=== PATIENT | female | born 1950 | race Caucasian/White ===

== ENCOUNTER → 2016-12-24 | Outpatient (CLI) | payer MEDICARE, OTHER ==
[2016-12-24 11:16] LABS: HEMATOCRIT 35.1 % (36.0-47.0); HGB HCT DIFFERENCE 0.9; MEAN CORPUSCULAR HGB CONC 34.1 g/dL (32.0-36.0); MEAN CORPUSCULAR VOLUME 85 fl (80-97); RED BLOOD COUNT 4.13 10^6/uL (3.72-5.28); WHITE BLOOD COUNT 5.7 10^3/uL (4.0-10.5)
[2016-12-24 11:23] LABS: APPEARANCE,URINE CLEAR; BILIRUBIN,URINE NEGATIVE (NEGATIVE); GLUCOSE, URINE NEGATIVE (NEGATIVE); KETONES,URINE NEGATIVE (NEGATIVE); LEUKOCYTE ESTERASE,URINE NEGATIVE (NEGATIVE); NITRITE,URINE NEGATIVE (NEGATIVE); PROTEIN,URINE 30 mg/dL (NEGATIVE); URINE SPECIFIC GRAVITY 1.006; UROBILINOGEN,URINE NEGATIVE mg/dL (<2.0)
[2016-12-24 11:30] LABS: ANION GAP 10 (5-19); BLOOD UREA NITROGEN 22 mg/dL (7-20); CALCIUM 9.5 mg/dL (8.4-10.2); CARBON DIOXIDE 26 mmol/L (22-30); CHLORIDE 104 mmol/L (98-107); CREATININE RESULT 0.77 mg/dL (0.52-1.25); GLUCOSE 126 mg/dL (75-110); POTASSIUM 4.7 mmol/L (3.6-5.0)
[2016-12-24 12:05] LABS: FERRITIN 7.86 ng/mL (11.1-264.0)
[2016-12-25 10:38] LABS: CREATININE URINE 28.7 mg/dL (Not Estab.)
== END ==
LOC: OD 10:40
PROVIDERS: ATTEND Internal Medicine Nephrology
DX: R80.9 Proteinuria, unspecified (principal); E11.9 Type 2 diabetes mellitus without complications; D64.9 Anemia, unspecified
CPT/HCPCS: 36415; 80048; 81001; 82570; 82728; 83540; 83550; 84156; 85027

== ENCOUNTER 2017-01-29 00:05 | Observation (INO) | payer MEDICARE, OTHER ==
[2017-01-29] MEDS ORDERED: ASPIRIN 81 MG TABLET, CHEWABLE PO ONE (00:09)
[2017-01-29 01:02] LABS: ABSOLUTE EOSINOPHILS # (AUTO) 0.2 10^3/uL (0.0-0.6); ABSOLUTE LYMPHOCYTES (AUTO) 2.1 10^3/uL (0.5-4.7); ABSOLUTE MONOCYTES (AUTO) 0.5 10^3/uL (0.1-1.4); ABSOLUTE NEUT (AUTO) 3.5 10^3/uL (1.7-8.2); BASOPHILS % (AUTO) 0.8 % (0-2); EOSINOPHILS % (AUTO) 3.1 % (0-6); HEMATOCRIT 33.2 % (36.0-47.0); HEMOGLOBIN 11.2 g/dL (12.0-15.5); HGB HCT DIFFERENCE 0.4; LYMPHOCYTES % (AUTO) 33.4 % (13-45); MEAN CORPUSCULAR HEMOGLOBIN 28.2 pg (27.0-33.4); MEAN CORPUSCULAR HGB CONC 33.6 g/dL (32.0-36.0); MEAN CORPUSCULAR VOLUME 84 fl (80-97); MONOCYTES % (AUTO) 7.9 % (3-13); RED BLOOD COUNT 3.95 10^6/uL (3.72-5.28); RED CELL DISTRIBUTION WIDTH 13.5 % (11.5-14.0); SEGMENTED NEUTROPHILS % (AUTO) 54.8 % (42-78); WHITE BLOOD COUNT 6.3 10^3/uL (4.0-10.5)
[2017-01-29 01:12] LABS: ALANINE AMINOTRANSFERASE 31 U/L (9-52); ALBUMIN 3.9 g/dL (3.5-5.0); ALKALINE PHOSPHATASE 51 U/L (38-126); ANION GAP 14 (5-19); ASPARTATE AMINO TRANSFERASE 19 U/L (14-36); BILIRUBIN,DIRECT 0.2 mg/dL (0.0-0.4); BILIRUBIN,TOTAL 0.2 mg/dL (0.2-1.3); BLOOD UREA NITROGEN 21 mg/dL (7-20); CALCIUM 9.3 mg/dL (8.4-10.2); CARBON DIOXIDE 22 mmol/L (22-30); CHLORIDE 105 mmol/L (98-107); CREATINE KINASE 61 U/L (30-135); CREATININE RESULT 0.91 mg/dL (0.52-1.25); GLUCOSE 126 mg/dL (75-110); POTASSIUM 4.2 mmol/L (3.6-5.0); SODIUM 141.1 mmol/L (137-145); TOTAL PROTEIN 6.4 g/dL (6.3-8.2)
[2017-01-29 01:24] LABS: CREATINE KINASE MB 0.77 ng/mL (<4.55)
[2017-01-29 01:25] LABS: TROPONIN I < 0.012 ng/mL
--- NOTE | 2017-01-29 01:46 | ER Document Report ---
ED Cardiac - General Chief Complaint: Chest Pain Stated Complaint: CHEST PAIN Time Seen by Provider: 01/29/17 01:23 Mode of Arrival: Ambulatory Information source: Patient Notes: Patient is a 66-year-old female with a history of hypertension, high cholesterol, diabetes and smoking who presents to the ER today for chest pain has been intermittent 1 week but worsened tonight at approximately 8 PM in the left side of her chest radiating to the left shoulder blade and down the left arm. Patient admits to shortness of breath with the pain. She denies any nausea or vomiting. She describes the chest pain as a tightness and sharp, shooting pains in the back. She has never had a heart attack or stroke. She did not try anything for the pain. TRAVEL OUTSIDE OF THE [place] IN LAST 30 DAYS: No - Related Data Allergies/Adverse Reactions: Sulfa (Sulfonamide Antibiotics) Allergy (Intermediate, Verified 01/29/17 00:21) Home Medications: Current Home Medications Ferrous Sulfate [Feosol 325 mg Tablet] 325 mg PO DAILY 01/29/17 [History] Losartan Potassium [Cozaar 50 mg Tablet] 50 mg PO DAILY 01/29/17 [History] Metformin HCl [Metformin HCl ER] 500 mg PO BIDBS 01/29/17 [History] Metoprolol Succinate [Toprol Xl 50 mg Tab.sr] 50 mg PO Q12 01/29/17 [History] Omeprazole 40 mg PO DAILY 01/29/17 [History] Pioglitazone HCl [Actos] 30 mg PO DAILY 01/29/17 [History] Simvastatin [Zocor 20 mg Tablet] 20 mg PO QHS 01/29/17 [History] Past Medical History - General Information source: Patient - Social History Smoking Status: Current Every Day Smoker Chew tobacco use (# tins/day): No Frequency of alcohol use: None Drug Abuse: None Family History: CAD, DM, Hyperlipidemia, Hypertension Patient has suicidal ideation: No Patient has homicidal ideation: No - Past Medical History Cardiac Medical History: Reports: Hx Hypercholesterolemia, Hx Hypertension - MEDICATED Denies: Hx Heart Attack Pulmonary Medical History: Denies: Hx Asthma, Hx Bronchitis, Hx COPD, Hx Pneumonia Neurological Medical History: Denies: Hx Cerebrovascular Accident, Hx Seizures Endocrine Medical History: Reports: Hx Diabetes Mellitus Type 2 Renal/ Medical History: Reports: Hx Kidney Stones. Denies: Hx Peritoneal Dialysis GI Medical History: Reports: Hx Hiatal Hernia. Denies: Hx Hepatitis, Hx Ulcer Musculoskeltal Medical History: Denies Hx Arthritis Infectious Medical History: Denies: Hx Hepatitis Past Surgical History: Reports: Hx Cholecystectomy. Denies: Hx Hysterectomy, Hx Mastectomy, Hx Open Heart Surgery, Hx Pacemaker - Immunizations Hx Diphtheria, Pertussis, Tetanus Vaccination: Yes Review of Systems - Review of Systems Constitutional: No symptoms reported EENT: No symptoms reported Cardiovascular: See HPI Respiratory: See HPI Gastrointestinal: No symptoms reported Genitourinary: No symptoms reported Female Genitourinary: No symptoms reported Musculoskeletal: No symptoms reported Skin: No symptoms reported Hematologic/Lymphatic: No symptoms reported Neurological/Psychological: No symptoms reported Physical Exam - Vital signs Vitals: Temp Pulse Resp BP Pulse Ox 97.8 F 59 L 20 163/62 H 98 01/29/17 00:21 01/29/17 00:21 01/29/17 00:21 01/29/17 00:21 01/29/17 00:21 - Notes Notes: PHYSICAL EXAMINATION: GENERAL: Well-appearing and in no acute distress. HEAD: Atraumatic, normocephalic. EYES: Pupils equal round and reactive to light, extraocular movements intact, sclera anicteric, conjunctiva are normal. NECK: Normal range of motion, supple without lymphadenopathy LUNGS: CTAB and equal. No wheezes rales or rhonchi. HEART: Chest nontender to palpation, Regular rate and rhythm without murmurs ABDOMEN: Soft, no tenderness. No guarding, no rebound BACK: no vertebral tenderness, normal ROM GI/: no CVA tenderness EXTREMITIES: Normal range of motion, no pitting edema. No cyanosis. NEUROLOGICAL: Cranial nerves grossly intact. Normal sensory/motor exams. PSYCH: Normal mood, normal affect. SKIN: Warm, Dry, normal turgor, no rashes or lesions noted Course - Re-evaluation Re-evalutation: 01/29/17 03:43 Labwork is unremarkable today including a normal set of cardiac enzymes. EKG reveals a normal sinus rhythm at a rate of 63 bpm with no evidence of ischemia or abnormality. Chest x-ray is without acute pathology. Patient's chest pain did relieve with nitroglycerin paste. Last stress test was 5 years ago. 01/29/17 03:54 Dr. Karlos suarez second troponin. 01/29/17 05:04 Second troponin is also negative. Dr. Everett agrees to admit patient for chest pain rule out at this time possible stress test. Patient is chest pain- free at this time. - Vital Signs Vital signs: Temp Pulse Resp BP Pulse Ox 97.7 F 64 18 140/60 H 99 01/29/17 15:57 01/29/17 15:57 01/29/17 15:57 01/29/17 11:36 01/29/17 15:57 - Laboratory Result Diagrams: 01/29/17 00:51 01/29/17 00:51 Laboratory results interpreted by me: 01/29/17 01/29/17 01/29/17 00:51 00:51 00:51 Hgb 11.2 L Hct 33.2 L BUN 21 H Glucose 126 H Hemoglobin A1c % 6.7 H Triglycerides VLDL Cholesterol TSH 01/29/17 01/29/17 03:56 03:56 Hgb Hct BUN Glucose Hemoglobin A1c % Triglycerides 180 H VLDL Cholesterol 36.0 H TSH 7.55 H Discharge - Discharge Clinical Impression: Chest pain Admitting Provider: Hospitalist Unit Admitted: Telemetry
[2017-01-29] MEDS ORDERED: NITROGLYCERIN 2% OINTMENT 1 GM PACKET TP ONE (01:57)
[2017-01-29] MEDS ORDERED: MAG HYDROX/AL HYDROX/SIMETH SUSP 30 ML UDCUP PO ONE (02:40)
[2017-01-29] MEDS ORDERED: LIDOCAINE 2% VISCOUS SOLN 20 ML UDCUP PO ONE (02:40)
[2017-01-29] MEDS ORDERED: METOCLOPRAMIDE HCL ORAL SOLN 10 MG/10 ML UDCUP PO ONE (02:40)
[2017-01-29] MEDS ORDERED: INSULIN LISPRO 100 UNIT/ML 3 ML VIAL SUBCUT PRN (04:39)
[2017-01-29] MEDS ORDERED: NITROGLYCERIN 0.4 MG/TAB 25 TAB/BOTTLE SL PRN (04:39)
[2017-01-29] MEDS ORDERED: GLUCAGON,HUMAN RECOMB 1 MG INJ IM PRN (04:39)
[2017-01-29] MEDS ORDERED: DEXTROSE 40% GEL 15 GM TUBE PO PRN ×2 (04:39)
[2017-01-29] MEDS ORDERED: DEXTROSE 50%-WATER 25 GM/50 ML DISP.SYRIN IV PRN ×2 (04:39)
[2017-01-29] MEDS ORDERED: HYDRALAZINE HCL INJ/PF 20 MG/1 ML SDV IV PRN (04:42)
[2017-01-29] MEDS ORDERED: ATORVASTATIN CALCIUM 80 MG TABLET PO SCH ×3 (04:45→22:00)
[2017-01-29] MEDS ORDERED: ENALAPRILAT DIHYDRATE INJ/PF 1.25 MG/1 ML SDV IV PRN (05:18)
[2017-01-29] MEDS ORDERED: ENALAPRILAT DIHYDRATE INJ/PF 1.25 MG/1 ML SDV IV ONE (05:18)
[2017-01-29 05:23] LABS: CHOLESTEROL 130.11 mg/dL (0-200); Direct HDL 41 mg/dL (>40); TRIGLYCERIDES 180 mg/dL (<150)
--- NOTE | 2017-01-29 05:25 | PDOC H&P ---
History of Present Illness Admission Date/PCP: ROCHELLE LYON PA-C Patient complains of: Chest pain and shortness of breath History of Present Illness: CHRISTEN GRIFFIN is a 66 year old female with a past medical history of hypertension, tobacco, dyslipidemia and diabetes. She been her usual state of health until approximately 1 week ago having intermittent episodes of left- sided chest pain which is sharp in nature 3-5 intensity that radiates down the left arm and back associated with shortness of breath without palpitations or nausea. Symptoms have become more intense prompting him to seek evaluation emergency room where she's found to have uncontrolled hypertension the 180s systolic and near total resolution with topical nitroglycerin. She is currently pain-free and referred to the hospitalist for admission. She denies previous episode alleviating or exacerbating factors. Her last cardiac stress test was several years ago. Past Medical History Cardiac Medical History: Reports: Hyperlipidema, Hypertension - MEDICATED Denies: Myocardial Infarction Pulmonary Medical History: Denies: Asthma, Bronchitis, Chronic Obstructive Pulmonary Disease (COPD), Pneumonia Neurological Medical History: Denies: Seizures Endocrine Medical History: Reports: Diabetes Mellitus Type 2 GI Medical History: Reports: Hiatal Hernia Denies: Hepatitis Musculoskeltal Medical History: Denies: Arthritis Psychiatric Medical History: Reports: Tobacco Dependency Hematology: Denies: Anemia, Sickle Cell Disease Past Surgical History Past Surgical History: Reports: Cholecystectomy Denies: Amputation, Hysterectomy, Mastectomy, Pacemaker Social History Information Source: Patient, [facility] Records Lives with: Alone Smoking Status: Current Every Day Smoker Cigarettes Packs Per Day: 0.5 Frequency of Alcohol Use: None Drugs: None Family History Family History: CAD, Hypertension Parental Family History Reviewed: Yes Children Family History Reviewed: Yes Sibling(s) Family History Reviewed.: Yes Medication/Allergy Home Medications: Felodipine [Plendil] 1 tab PO DAILY 09/28/13 Fenofibric Acid (Choline) [Fenofibric Acid] 135 mg PO DAILY 09/28/13 Glimepiride 1 mg PO DAILY 09/28/13 Metformin HCl [Glucophage 850 mg Tablet] 850 mg PO BIDACBS 09/28/13 Metoprolol Succinate [Toprol Xl 50 mg Tab.sr] 50 mg PO DAILY 09/28/13 Omeprazole 20 mg PO DAILY 09/28/13 Simvastatin 20 mg PO DAILY 09/28/13 Cephalexin Monohydrate [Keflex 500 mg Capsule] 1 tab PO BID 02/20/14 Ciprofloxacin HCl [Cipro 500 mg Tablet] 1 tab PO BID 02/20/14 Ibuprofen [Motrin 400 mg Tablet] 1 tab PO TID 02/20/14 Oxycodone HCl 1 tab PO Q4HP PRN 02/20/14 Phenazopyridine HCl [Pyridium 200 mg Tablet] 1 tab PO TID 02/20/14 Allergies/Adverse Reactions: Sulfa (Sulfonamide Antibiotics) Allergy (Intermediate, Verified 01/29/17 00:21) Review of Systems Constitutional: ABSENT: chills, fever(s), headache(s), weight gain, weight loss Eyes: ABSENT: visual disturbances Ears: ABSENT: hearing changes Cardiovascular: ABSENT: chest pain, dyspnea on exertion, edema, orthropnea, palpitations Respiratory: ABSENT: cough, hemoptysis Gastrointestinal: ABSENT: abdominal pain, constipation, diarrhea, hematemesis, hematochezia, nausea, vomiting Genitourinary: ABSENT: dysuria, hematuria Musculoskeletal: ABSENT: joint swelling Integumentary: ABSENT: rash, wounds Neurological: ABSENT: abnormal gait, abnormal speech, confusion, dizziness, focal weakness, syncope Psychiatric: ABSENT: anxiety, depression, homidical ideation, suicidal ideation Endocrine: ABSENT: cold intolerance, heat intolerance, polydipsia, polyuria Hematologic/Lymphatic: ABSENT: easy bleeding, easy bruising Physical Exam Vital Signs: Temp Pulse Resp BP Pulse Ox 97.8 F 59 L 15 144/76 H 97 01/29/17 00:21 01/29/17 00:21 01/29/17 02:46 01/29/17 02:46 01/29/17 02:46 Intake & Output 01/27/17 01/28/17 01/29/17 11:59 11:59 11:59 Weight 97.8 kg General appearance: PRESENT: no acute distress, well-developed, well-nourished Head exam: PRESENT: atraumatic, normocephalic Eye exam: PRESENT: conjunctiva pink, EOMI, PERRLA. ABSENT: scleral icterus Ear exam: PRESENT: normal external ear exam Mouth exam: PRESENT: moist, tongue midline Neck exam: ABSENT: carotid bruit, JVD, lymphadenopathy, thyromegaly Respiratory exam: PRESENT: clear to auscultation davion. ABSENT: rales, rhonchi, wheezes Cardiovascular exam: PRESENT: RRR, +S1, +S2, systolic murmur. ABSENT: bradycardia, clicks, gallop Pulses: PRESENT: normal dorsalis pedis pul Vascular exam: PRESENT: normal capillary refill GI/Abdominal exam: PRESENT: normal bowel sounds, soft. ABSENT: distended, guarding, mass, organolmegaly, rebound, tenderness Rectal exam: PRESENT: deferred Extremities exam: PRESENT: full ROM. ABSENT: calf tenderness, clubbing, pedal edema Neurological exam: PRESENT: alert, awake, oriented to person, oriented to place , oriented to time, oriented to situation, CN II-XII grossly intact. ABSENT: motor sensory deficit Psychiatric exam: PRESENT: appropriate affect, normal mood. ABSENT: homicidal ideation, suicidal ideation Skin exam: PRESENT: dry, intact, warm. ABSENT: cyanosis, rash Results Laboratory Results: 01/29/17 00:51 01/29/17 00:51 01/29/17 01/29/17 00:51 00:51 WBC 6.3 RBC 3.95 Hgb 11.2 L Hct 33.2 L MCV 84 MCH 28.2 MCHC 33.6 RDW 13.5 Plt Count 194 Seg Neutrophils % 54.8 Lymphocytes % 33.4 Monocytes % 7.9 Eosinophils % 3.1 Basophils % 0.8 Absolute Neutrophils 3.5 Absolute Lymphocytes 2.1 Absolute Monocytes 0.5 Absolute Eosinophils 0.2 Absolute Basophils 0.0 Sodium 141.1 Potassium 4.2 Chloride 105 Carbon Dioxide 22 Anion Gap 14 BUN 21 H Creatinine 0.91 Est GFR ( Amer) > 60 Est GFR (Non-Af Amer) > 60 Glucose 126 H Calcium 9.3 Total Bilirubin 0.2 AST 19 ALT 31 Alkaline Phosphatase 51 Total Protein 6.4 Albumin 3.9 01/29/17 01/29/17 00:51 00:51 Creatine Kinase 61 CK-MB (CK-2) 0.77 Troponin I < 0.012 Impressions: Chest X-Ray 01/29/17 00:09 IMPRESSION: NO ACUTE RADIOGRAPHIC FINDING IN THE CHEST. Assessment & Plan - Diagnosis (1) Chest pain Qualifiers: Chest pain type: unspecified Qualified Code(s): R07.9 - Chest pain, unspecified Is this a current diagnosis for this admission?: YesPlan: Multiple risk factors for coronary artery disease, observation on monitored bed , chest pain care set evaluation of risk factors and Cardiolite stress test (2) HTN (hypertension) Is this a current diagnosis for this admission?: YesPlan: Outpatient regiment with when necessary Vasotec (3) Diabetes Qualifiers: Diabetes mellitus type: type 2 Is this a current diagnosis for this admission?: YesPlan: Unclear control sliding scale before every meal see an A1c evaluation (4) Tobacco abuse Is this a current diagnosis for this admission?: YesPlan: Tobacco Dependence patient received tobacco cessation counseling and offered nicotine replacement options - Time Time Spent: 50 to 70 Minutes
[2017-01-29 05:35] LABS: DIRECT LDL 40 mg/dL (<100)
[2017-01-29] MEDS: HEPARIN SOD (PORCINE) 5,000 UNIT/ML 1 ML SYRINGE SUBCUT SCH ×2 (05:55→13:25)
[2017-01-29] MEDS ORDERED: LANSOPRAZOLE 30 MG TAB.RAP.DR PO SCH (06:00)
[2017-01-29 09:53] LABS: CREATINE KINASE MB 0.74 ng/mL (<4.55)
[2017-01-29 09:56] LABS: TROPONIN I < 0.012 ng/mL
[2017-01-29] MEDS ORDERED: METOPROLOL SUCCINATE 50 MG TAB.SR.24H PO SCH (10:00)
[2017-01-29] MEDS ORDERED: AMLODIPINE BESYLATE 5 MG TABLET PO SCH (10:00)
[2017-01-29] MEDS ORDERED: FELODIPINE PO SCH (10:00)
[2017-01-29] MEDS ORDERED: DOCUSATE SODIUM 100 MG CAPSULE PO SCH (10:00)
[2017-01-29] MEDS ORDERED: REGADENOSON INJ 0.4 MG/5 ML DISP.SYRIN IV ONE (11:23)
[2017-01-29 12:04] VITALS: BP 140/60
--- NOTE | 2017-01-29 13:44 | EKG REPORT ---
SEVERITY:- NORMAL ECG - SINUS RHYTHM : Confirmed by: Royce Molina 29-Jan-2017 13:43:18
--- NOTE | 2017-01-29 14:08 | PDOC DISCHARGE SUMMARY ---
General - Admit/Disc Date/PCP Admission Date/Primary Care Provider: 01/29/17 04:39 ROCHELLE LYON PA-C Discharge Date: 01/29/17 - Discharge Diagnosis (1) Chest pain Is this a current diagnosis for this admission?: YesSummary: Ruled out for acute coronary syndrome. most likely musculoskeletal in origin. Cardiolite stress test negative for ischemia (2) Diabetes Is this a current diagnosis for this admission?: YesSummary: Continue home medications (3) HTN (hypertension) Is this a current diagnosis for this admission?: YesSummary: Continue home medications (4) Tobacco abuse Is this a current diagnosis for this admission?: YesSummary: Counseled on need to quit smoking - Additional Information Resuscitation Status: Full Code Discharge Diet: Diabetic Discharge Activity: Activity As Tolerated, Balance Activity w/Rest Home Medications: Felodipine [Plendil] 1 tab PO DAILY 09/28/13 Fenofibric Acid (Choline) [Fenofibric Acid] 135 mg PO DAILY 09/28/13 Glimepiride 1 mg PO DAILY 09/28/13 Metformin HCl [Glucophage 850 mg Tablet] 850 mg PO BIDACBS 09/28/13 Metoprolol Succinate [Toprol Xl 50 mg Tab.sr] 50 mg PO DAILY 09/28/13 Omeprazole 20 mg PO DAILY 09/28/13 Simvastatin 20 mg PO DAILY 09/28/13 Cephalexin Monohydrate [Keflex 500 mg Capsule] 1 tab PO BID 02/20/14 Ciprofloxacin HCl [Cipro 500 mg Tablet] 1 tab PO BID 02/20/14 Ibuprofen [Motrin 400 mg Tablet] 1 tab PO TID 02/20/14 Oxycodone HCl 1 tab PO Q4HP PRN 02/20/14 Phenazopyridine HCl [Pyridium 200 mg Tablet] 1 tab PO TID 02/20/14 Levothyroxine Sodium [Synthroid] 125 mcg PO DAILY #30 tablet 01/29/17 History of Present Illness Patient complains of: Chest pain History of Present Illness: CHRISTEN GRIFFIN is a 66 year old female with a past medical history of hypertension, tobacco, dyslipidemia and diabetes. She been her usual state of health until approximately 1 week ago having intermittent episodes of left- sided chest pain which is sharp in nature 3-5 intensity that radiates down the left arm and back associated with shortness of breath without palpitations or nausea. Symptoms have become more intense prompting him to seek evaluation emergency room where she's found to have uncontrolled hypertension the 180s systolic and near total resolution with topical nitroglycerin. She is currently pain-free and referred to the hospitalist for admission. She denies previous episode alleviating or exacerbating factors. Her last cardiac stress test was several years ago. Hospital Course Hospital Course: Patient was admitted to telemetry. Serial troponins were obtained which were all <0.012. Patient had no further pain overnight. She was noted to have elevate TSH,of 7.55. She underwent cardiolite stress testing today that was reported as negative for ischemia by Dr Santiago. The patient feels well and wishes to go home. Physical Exam Vital Signs: Temp Pulse Resp BP Pulse Ox 97.7 F 64 18 140/60 H 99 01/29/17 11:36 01/29/17 11:36 01/29/17 11:36 01/29/17 11:36 01/29/17 11:36 General appearance: PRESENT: no acute distress, obese, well-developed, well- nourished Head exam: PRESENT: atraumatic, normocephalic Eye exam: PRESENT: conjunctiva pink, EOMI, PERRLA. ABSENT: scleral icterus Ear exam: PRESENT: normal external ear exam Mouth exam: PRESENT: moist, tongue midline Neck exam: ABSENT: carotid bruit, JVD, lymphadenopathy, thyromegaly Respiratory exam: PRESENT: clear to auscultation davion. ABSENT: rales, rhonchi, wheezes Cardiovascular exam: PRESENT: RRR. ABSENT: diastolic murmur, rubs, systolic murmur Pulses: PRESENT: normal dorsalis pedis pul Vascular exam: PRESENT: normal capillary refill GI/Abdominal exam: PRESENT: normal bowel sounds, soft. ABSENT: distended, guarding, mass, organolmegaly, rebound, tenderness Rectal exam: PRESENT: deferred Extremities exam: PRESENT: full ROM. ABSENT: calf tenderness, clubbing, pedal edema Neurological exam: PRESENT: alert, awake, oriented to person, oriented to place , oriented to time, oriented to situation, CN II-XII grossly intact. ABSENT: motor sensory deficit Psychiatric exam: PRESENT: appropriate affect, normal mood. ABSENT: homicidal ideation, suicidal ideation Skin exam: PRESENT: dry, intact, warm. ABSENT: cyanosis, rash Results Laboratory Results: 01/29/17 09:01 CK-MB (CK-2) 0.74 Troponin I < 0.012 Impressions: Chest X-Ray 01/29/17 00:09 IMPRESSION: NO ACUTE RADIOGRAPHIC FINDING IN THE CHEST. Qualifiers PATEINT BEING DISCHARGED WITH ANY OF THE FOLLOWING DIAGNOSIS?: No Plan Discharge Plan: Home with family Time Spent: Less than 30 Minutes
--- NOTE | 2017-01-29 21:11 | DRAGON STRESS TEST REPORT ---
Intravenous Lexiscan Cardiolite stress test using single photon emmision computerized tomography. Date of procedure: 01/30/20 Ordering Provider: Dr. Irvin Everett Patient's status: In patient Indication: Chest pain. Coronary risk factors: Age, diabetes mellitus type II [id number], hypertension, dyslipidemia, tobacco abuse disorder, and family history of coronary artery disease Resting EKG: Sinus Bradycardia. T inversion in leads 3 and aVF. The patient had no chest pain or discomfort and there were no arrhythmias seen. She had mild shortness of breath without wheezing, with this resolved with patient drinking Pepsi. Stress EKG: No changes of ischemia. Reason for termination: Protocol. Conclusions: Normal EKG and hemodynamic response to IV Lexiscan. Nuclear data: At rest the patient was given 14.70 millicuries of technetium 99m sestamibi injected intravenously. As per protocol rest non gated SPECT images were obtained. Subsequently the patient was given intravenous Lexiscan at a dose of 0.4 mg in 5 mL intravenously, followed by flush with normal saline. Subsequently the stress dose of 46.9 millicuries of technetium 99m sestamibi was injected intravenously. As per protocol stress gated images were obtained. Nuclear interpretation: Review of images showed that all segments of the myocardium had normal perfusion at rest, and normal perfusion post stress with IV Lexiscan. All segments of the myocardium had normal motion, contraction, and thickening by gated study. T. I D. ratio was read as abnormal , the computer, at 1.25. Visually this is not reliable, and the visual T I D ratio is normal Computer read rest, and stress left ventricular ejection fraction were 59 %, and 53 %, respectively. Visually both the stress and rest ejection fractions were normal, and greater than 55%. Conclusion: 1. There is no scintigraphic evidence of Lexiscan induced myocardial ischemia. 2. There is no scintigraphic evidence of myocardial infarction/scar. Recommendations: Aggressive risk factor modification, and treating the underlying co- morbidities. MTDD
== END 2017-01-29 16:40 | disposition home or self-care (01) ==
LOC: ER 00:05 → EH 04:39 → 4N 06:55
PROVIDERS: ADMIT Internal Medicine; ATTEND Internal Medicine
DX: R07.89 Other chest pain (principal); I10 Essential (primary) hypertension; E11.9 Type 2 diabetes mellitus without complications; F17.200 Nicotine dependence, unspecified, uncomplicated; R06.02 Shortness of breath; E78.5 Hyperlipidemia, unspecified; E66.9 Obesity, unspecified; F17.210 Nicotine dependence, cigarettes, uncomplicated; Z79.84 Long term (current) use of oral hypoglycemic drugs; Z79.899 Other long term (current) drug therapy; Z79.1 Long term (current) use of non-steroidal anti-inflammatories (NSAID); Z90.49 Acquired absence of other specified parts of digestive tract; Z82.49 Family history of ischemic heart disease and other diseases of the circulatory system; Z68.34 Body mass index [BMI] 34.0-34.9, adult
CPT/HCPCS: 93005; 99285; 96372; 96374; 36415; 82553; 82550; 84443; 85025; 80053; 84484; 83036; 80061; 93017; 71010; 78452; 93010; G0378 ×2; A9500; J2785; A9270 ×5; J1644; J3490 ×3; Q9969

== ENCOUNTER → 2017-09-09 | Outpatient (CLI) | payer MEDICARE, OTHER ==
[2017-09-09 11:28] LABS: HGB HCT DIFFERENCE -1.2; MEAN CORPUSCULAR HEMOGLOBIN 21.9 pg (27.0-33.4); MEAN CORPUSCULAR HGB CONC 31.8 g/dL (32.0-36.0); MEAN CORPUSCULAR VOLUME 69 fl (80-97); RED BLOOD COUNT 3.49 10^6/uL (3.72-5.28); RED CELL DISTRIBUTION WIDTH 16.7 % (11.5-14.0); WHITE BLOOD COUNT 4.9 10^3/uL (4.0-10.5)
[2017-09-09 11:32] LABS: HEMOGLOBIN 7.6 g/dL (12.0-15.5)
[2017-09-09 11:48] LABS: ANION GAP 12 (5-19); BLOOD UREA NITROGEN 21 mg/dL (7-20); CALCIUM 9.5 mg/dL (8.4-10.2); CARBON DIOXIDE 24 mmol/L (22-30); CHLORIDE 107 mmol/L (98-107); CREATININE RESULT 1.22 mg/dL (0.52-1.25); GLUCOSE 166 mg/dL (75-110); POTASSIUM 4.5 mmol/L (3.6-5.0); SODIUM 142.7 mmol/L (137-145)
[2017-09-09 12:22] LABS: FERRITIN 8.04 ng/mL (11.1-264.0)
[2017-09-14 17:36] LABS: A/G RATIO 1.3 (0.7-1.7); ALPHA-1-GLOBULIN 2 0.2 g/dL (0.0-0.4); GAMMA GLOBULIN 0.6 g/dL (0.4-1.8); PROTEIN TOTAL SERUM 6.1 g/dL (6.0-8.5)
== END ==
LOC: OD 10:42
PROVIDERS: ATTEND Internal Medicine Nephrology
DX: R80.9 Proteinuria, unspecified (principal); E11.9 Type 2 diabetes mellitus without complications; I10 Essential (primary) hypertension; D64.9 Anemia, unspecified
CPT/HCPCS: 36415; 80048; 82607; 82728; 83540; 83550; 84165; 84443; 85027

== ENCOUNTER → 2017-09-10 | Outpatient (CLI) | payer MEDICARE, OTHER ==
[2017-09-10 11:58] LABS: HGB HCT DIFFERENCE -1.9; MEAN CORPUSCULAR HGB CONC 30.7 g/dL (32.0-36.0); MEAN CORPUSCULAR VOLUME 68 fl (80-97); RED BLOOD COUNT 3.65 10^6/uL (3.72-5.28); RED CELL DISTRIBUTION WIDTH 16.7 % (11.5-14.0); WHITE BLOOD COUNT 5.3 10^3/uL (4.0-10.5)
[2017-09-10 12:04] LABS: HEMOGLOBIN 7.7 g/dL (12.0-15.5)
== END ==
LOC: OD 11:28
PROVIDERS: ATTEND Physician Assistant Medical
DX: D64.9 Anemia, unspecified (principal)
CPT/HCPCS: 36415; 85027

== ENCOUNTER 2017-09-16 09:44 | Outpatient (CLI) | payer MEDICARE, OTHER ==
[~2017-09-16 09:44] MED LIST: FERUMOXYTOL (NON-ESRD) 510 MG/NS 100 ML IV PRN
[2017-09-16 10:01] VITALS: BP 167/53
== END 2017-09-16 11:52 | disposition home or self-care (01) ==
LOC: II 09:44 → 5TH 10:13 → II 11:52
PROVIDERS: ATTEND Internal Medicine Nephrology
PROC: 3E033GC Introduction of Other Therapeutic Substance into Peripheral Vein, Percutaneous Approach (ICD-10-PCS; principal; 2017-09-16)
DX: D50.9 Iron deficiency anemia, unspecified (principal); N18.9 Chronic kidney disease, unspecified
CPT/HCPCS: 96367; Q0138; 96365

== ENCOUNTER → 2017-09-22 | Outpatient (CLI) | payer MEDICARE, OTHER ==
--- NOTE | 2017-09-22 11:09 | RADIOLOGY REPORT (SQ) ---
EXAM DESCRIPTION: U/S ABDOMEN COMPLETE W/O DOP COMPLETED DATE/TIME: 09/22/2017 9:33 am REASON FOR STUDY: CKD III (N18.3), HEMATURIA (R31.9) R31.9 HEMATURIA, UNSPECIFIED N18.3 CHRONIC KI DNEY DISEASE, STAGE 3 (MODERATE) COMPARISON: None. TECHNIQUE: Dynamic and static grayscale images acquired of the abdomen and recorded on PACS. Additio nal selected color Doppler and spectral images recorded. LIMITATIONS: None. FINDINGS: PANCREAS: No masses. Visualized pancreatic duct normal caliber. LIVER: No masses. Echotexture normal. LIVER VASCULATURE: Normal directional flow of the main portal vein and hepatic veins. GALLBLADDER: Surgically absent. ULTRASOUND-DETECTED SHIN'S SIGN: Not applicable. INTRAHEPATIC DUCTS AND COMMON DUCT: CBD and intrahepatic ducts normal caliber. No filling defects. INFERIOR VENA CAVA: Normal flow. AORTA: No aneurysm. RIGHT KIDNEY:Normal size. Normal echogenicity. No solid or suspicious masses. No hydronephrosis. No c alcifications. LEFT KIDNEY: Normal size. Normal echogenicity. No solid or suspicious masses. No hydronephrosis. No calcifications. SPLEEN: Prominent, just under 13 cm. No focal mass. PERITONEAL AND PLEURAL SPACES: No ascites or effusions. OTHER: No other significant finding. IMPRESSION: 1. No urinary obstruction. 2. Status post cholecystectomy. 3. Splenomegaly. TECHNICAL DOCUMENTATION: JOB ID: [id number]- All Rights Reserved
== END ==
LOC: RAD 08:41
PROVIDERS: ATTEND Physician Assistant Medical
DX: N18.3 Chronic kidney disease, stage 3 (moderate) (principal); R31.9 Hematuria, unspecified
CPT/HCPCS: 76700

== ENCOUNTER → 2017-09-28 | Outpatient (CLI) | payer MEDICARE, OTHER ==
[2017-09-28 12:49] LABS: HEMATOCRIT 30.6 % (36.0-47.0); HEMOGLOBIN 9.4 g/dL (12.0-15.5); MEAN CORPUSCULAR HEMOGLOBIN 23.2 pg (27.0-33.4); MEAN CORPUSCULAR HGB CONC 30.8 g/dL (32.0-36.0); PLATELET COUNT 194 10^3/uL (150-450); RED BLOOD COUNT 4.06 10^6/uL (3.72-5.28); RED CELL DISTRIBUTION WIDTH 25.1 % (11.5-14.0); WHITE BLOOD COUNT 3.9 10^3/uL (4.0-10.5)
[2017-09-28 12:59] LABS: APPEARANCE,URINE SLIGHTLY-CLOUDY; BILIRUBIN,URINE NEGATIVE (NEGATIVE); COLOR,URINE YELLOW; GLUCOSE, URINE NEGATIVE (NEGATIVE); KETONES,URINE NEGATIVE (NEGATIVE); LEUKOCYTE ESTERASE,URINE NEGATIVE (NEGATIVE); NITRITE,URINE NEGATIVE (NEGATIVE); PROTEIN,URINE >=500 mg/dL (NEGATIVE); URINE SPECIFIC GRAVITY 1.015; UROBILINOGEN,URINE NEGATIVE mg/dL (<2.0)
[2017-09-28 13:03] LABS: ANION GAP 11 (5-19); BLOOD UREA NITROGEN 21 mg/dL (7-20); CALCIUM 9.8 mg/dL (8.4-10.2); CARBON DIOXIDE 25 mmol/L (22-30); CHLORIDE 107 mmol/L (98-107); GLUCOSE 121 mg/dL (75-110); IRON(TIBC) 56.3 ug/dL (37-170); POTASSIUM 4.7 mmol/L (3.6-5.0); SODIUM 143.3 mmol/L (137-145)
[2017-09-28 13:15] LABS: UR PRO/CREAT RATIO RESULT 0.7 mg/mg (0.0-0.2); URINE CREATININE 177.8 mg/dL (15-278); URINE PROTEIN 117.6 mg/dL (<12)
[2017-09-28 13:26] LABS: MEAN CORPUSCULAR VOLUME 75 fl (80-97)
== END ==
LOC: OD 12:07
PROVIDERS: ATTEND Physician Assistant Medical
DX: I12.9 Hypertensive chronic kidney disease with stage 1 through stage 4 chronic kidney disease, or unspecified chronic kidney disease (principal); N18.3 Chronic kidney disease, stage 3 (moderate); R80.9 Proteinuria, unspecified; E11.9 Type 2 diabetes mellitus without complications; D64.9 Anemia, unspecified; R31.9 Hematuria, unspecified
CPT/HCPCS: 36415; 80048; 81001; 82570; 82728; 83540; 83550; 84156; 85027

== ENCOUNTER 2017-10-06 08:48 | Outpatient (CLI) | payer MEDICARE, OTHER ==
[2017-10-06] MEDS ORDERED: FERUMOXYTOL (ESRD) 510 MG/NS 100 ML IV PRN ×2 (08:58)
[2017-10-06 09:13] VITALS: BP 165/67
== END 2017-10-06 10:45 | disposition home or self-care (01) ==
LOC: II 08:48 → 5TH 08:51 → II 10:45
PROVIDERS: ATTEND Internal Medicine Nephrology
PROC: 3E033GC Introduction of Other Therapeutic Substance into Peripheral Vein, Percutaneous Approach (ICD-10-PCS; principal; 2017-10-06)
DX: D50.8 Other iron deficiency anemias (principal); N18.9 Chronic kidney disease, unspecified
CPT/HCPCS: 96365; Q0139

== ENCOUNTER → 2017-10-25 | Outpatient (CLI) | payer MEDICARE, OTHER ==
[2017-10-25 11:19] LABS: ABSOLUTE BASOPHILS # (AUTO) 0.1 10^3/uL (0.0-0.2); ABSOLUTE EOSINOPHILS # (AUTO) 0.1 10^3/uL (0.0-0.6); ABSOLUTE LYMPHOCYTES (AUTO) 1.1 10^3/uL (0.5-4.7); ABSOLUTE MONOCYTES (AUTO) 0.3 10^3/uL (0.1-1.4); ABSOLUTE NEUT (AUTO) 3.2 10^3/uL (1.7-8.2); EOSINOPHILS % (AUTO) 2.8 % (0-6); HEMATOCRIT 36.7 % (36.0-47.0); HEMOGLOBIN 11.8 g/dL (12.0-15.5); LYMPHOCYTES % (AUTO) 22.7 % (13-45); MEAN CORPUSCULAR HEMOGLOBIN 25.2 pg (27.0-33.4); MEAN CORPUSCULAR HGB CONC 32.2 g/dL (32.0-36.0); MEAN CORPUSCULAR VOLUME 78 fl (80-97); MONOCYTES % (AUTO) 6.6 % (3-13); PLATELET COUNT 230 10^3/uL (150-450); RED BLOOD COUNT 4.69 10^6/uL (3.72-5.28); RED CELL DISTRIBUTION WIDTH 27.8 % (11.5-14.0); SEGMENTED NEUTROPHILS % (AUTO) 66.9 % (42-78); TOTAL CELLS COUNTED % (AUTO) 100 %; WHITE BLOOD COUNT 4.8 10^3/uL (4.0-10.5)
[2017-10-25 11:41] LABS: ANISOCYTOSIS 3+; HYPOCHROMASIA SLIGHT; OVALOCYTES 1+; PLATELET COMMENT ADEQUATE; POIKILOCYTOSIS 1+; POLYCHROMASIA SLIGHT; TEAR DROP CELLS SLIGHT
[2017-10-25 11:43] LABS: IRON(TIBC) 48.9 ug/dL (37-170)
== END ==
LOC: OD 10:44
PROVIDERS: ATTEND Physician Assistant Medical
DX: N18.3 Chronic kidney disease, stage 3 (moderate) (principal); D64.9 Anemia, unspecified; R80.9 Proteinuria, unspecified
CPT/HCPCS: 36415; 82728; 83540; 83550; 85025

== ENCOUNTER → 2018-02-17 | Outpatient (CLI) | payer MEDICARE, OTHER ==
--- NOTE | 2018-02-18 09:33 | RADIOLOGY REPORT (SQ) ---
EXAM DESCRIPTION: CT LUNG CANCER SCREENING COMPLETED DATE/TIME: 02/17/2018 1:13 pm REASON FOR STUDY: PERSSONAL HISTORY OF NICOTINE DEPEN Z87.891 PERSONAL HISTORY OF NICOTINE DEPENDEN CE Has the patient had a Chest CT scan within the past year? No Was the patient offered tobacco cessation counseling? No Was the patient engaged in shared decision making for this test? No Does the patient have signs or symptoms of Lung Cancer? Yes Is the patient a smoker? No the reason How many packs per year? 365 How many years since quitting smoking? 9 months Patients age: 67 COMPARISON: Chest film 01/29/2017 TECHNIQUE: Low Dose CT scan performed of the chest without intravenous contrast for purposes of scre ening for lung cancer. Images reviewed with lung, soft tissue and bone windows. Reconstructed coron al and sagittal MPR images reviewed. All images stored on PACS. All CT scanners at this facility use dose modulation, iterative reconstruction, and/or weight based d osing when appropriate to reduce radiation dose to as low as reasonably achievable (ALARA). [facility]: Dose Right [facility]: CareDose [facility]: Dose Right [facility]: Teradose 4D [facility]: Smart cloud.IQ RADIATION DOSE: CT Rad equipment meets quality standard of care and radiation dose reduction techniq ues were employed. CTDIvol: 2.1 mGy. DLP: 77 mGy-cm. mGy. . LIMITATIONS: No technical limitations. FINDINGS: LUNG NODULES: Multiple benign-appearing smooth round noncalcified subpleural nodules are present as follows: 6 mm right lower lobe image 234/491 5 mm right middle lobe image 256/491 4 mm right middle lobe image 288/491 2 mm right middle lobe image 293/491 REMAINING LUNGS AND PLEURA: No pleural effusions or calcifications. No pneumothorax. There is v thais mild tree-in-bud appearance both lung bases around the periphery, suggesting bronchiolitis or inf lammation. HILAR AND MEDIASTINAL STRUCTURES: 1.6 x 1.4 cm precarinal lymph node HEART AND VASCULAR STRUCTURES: No aortic aneurysm. No pericardial effusion. No cardiac devices. CORONARY ARTERY CALCIFICATIONS: 6 minimal UPPER ABDOMEN, THYROID, BONES, OTHER SOFT TISSUES: No significant findings. IMPRESSION: BENIGN FINDINGS IN THE LUNGS. NO OTHER CLINICALLY SIGNIFICANT/POTENTIALLY CLINICALLY SIGNIFICANT FINDINGS LUNGRADS: LUNGRADS: 2 BENIGN APPEARANCE OR BEHAVIOR. NODULES WITH A VERY LOW LIKELIHOOD OF BECOMING A CLINICALLY ACTIVE CANCER DUE TO SIZE OR LACK OF GROWTH. MODIFIER: NONE. RECOMMENDATION: Continue annual screening with LDCT in 12 months. COMMENT: CRITERIA: Solid nodule(s): < 6 mm; new < 4 mm. Part solid nodule(s): < 6 mm total diameter on baseline screening. Non solid nodule(s) (GGN): < 20 mm OR ? 20 and unchanged or slowly growing. Category 3 or 4 modules unchanged for ? 3 months. TECHNICAL DOCUMENTATION: JOB ID: [id number] Quality ID # [id number]: Final reports with documentation of one or more dose reduction techniques (e.g., Au tomated exposure control, adjustment of the mA and/or kV according to patient size, use of iterative reconstruction technique) 2010 [facility] Radiology Reading location - IP/workstation name: [email or web address]
== END ==
LOC: RAD 12:06
PROVIDERS: ATTEND Registered Nurse
DX: Z87.891 Personal history of nicotine dependence (principal)
CPT/HCPCS: G0297

== ENCOUNTER → 2018-02-28 | Outpatient (CLI) | payer MEDICARE, OTHER ==
[2018-02-28 11:47] LABS: HEMATOCRIT 35.9 % (36.0-47.0); HEMOGLOBIN 12.1 g/dL (12.0-15.5); MEAN CORPUSCULAR HEMOGLOBIN 28.5 pg (27.0-33.4); MEAN CORPUSCULAR HGB CONC 33.7 g/dL (32.0-36.0); MEAN CORPUSCULAR VOLUME 85 fl (80-97); PLATELET COUNT 229 10^3/uL (150-450); RED BLOOD COUNT 4.24 10^6/uL (3.72-5.28); RED CELL DISTRIBUTION WIDTH 15.2 % (11.5-14.0); WHITE BLOOD COUNT 5.2 10^3/uL (4.0-10.5)
[2018-02-28 11:50] LABS: APPEARANCE,URINE CLEAR; BILIRUBIN,URINE NEGATIVE (NEGATIVE); COLOR,URINE YELLOW; GLUCOSE, URINE NEGATIVE (NEGATIVE); KETONES,URINE NEGATIVE (NEGATIVE); LEUKOCYTE ESTERASE,URINE SMALL (NEGATIVE); NITRITE,URINE NEGATIVE (NEGATIVE); PROTEIN,URINE 100 mg/dL (NEGATIVE); URINE SPECIFIC GRAVITY 1.011; UROBILINOGEN,URINE NEGATIVE mg/dL (<2.0)
[2018-02-28 12:43] LABS: ANION GAP 12 (5-19); BLOOD UREA NITROGEN 20 mg/dL (7-20); CALCIUM 9.6 mg/dL (8.4-10.2); CARBON DIOXIDE 22 mmol/L (22-30); CHLORIDE 105 mmol/L (98-107); GLUCOSE 142 mg/dL (75-110); IRON(TIBC) 64.1 ug/dL (37-170); POTASSIUM 5.1 mmol/L (3.6-5.0); SODIUM 139.3 mmol/L (137-145)
== END ==
LOC: OD 10:42
PROVIDERS: ATTEND Physician Assistant Medical
DX: E11.9 Type 2 diabetes mellitus without complications (principal); I10 Essential (primary) hypertension; D64.9 Anemia, unspecified
CPT/HCPCS: 36415; 80048; 81001; 82728; 83540; 83550; 85027

== ENCOUNTER → 2018-10-06 | Outpatient (CLI) | payer MEDICARE, OTHER ==
[2018-10-06 12:31] LABS: HEMATOCRIT 32.8 % (36.0-47.0); HEMOGLOBIN 10.8 g/dL (12.0-15.5); MEAN CORPUSCULAR HEMOGLOBIN 25.3 pg (27.0-33.4); MEAN CORPUSCULAR VOLUME 77 fl (80-97); PLATELET COUNT 230 10^3/uL (150-450); RED BLOOD COUNT 4.28 10^6/uL (3.72-5.28); RED CELL DISTRIBUTION WIDTH 15.1 % (11.5-14.0); WHITE BLOOD COUNT 5.8 10^3/uL (4.0-10.5)
[2018-10-06 12:34] LABS: APPEARANCE,URINE SLIGHTLY-CLOUDY; BILIRUBIN,URINE NEGATIVE (NEGATIVE); COLOR,URINE YELLOW; GLUCOSE, URINE NEGATIVE (NEGATIVE); KETONES,URINE NEGATIVE (NEGATIVE); LEUKOCYTE ESTERASE,URINE SMALL (NEGATIVE); NITRITE,URINE NEGATIVE (NEGATIVE); PROTEIN,URINE 100 mg/dL (NEGATIVE); URINE SPECIFIC GRAVITY 1.012; UROBILINOGEN,URINE NEGATIVE mg/dL (<2.0)
[2018-10-06 12:52] LABS: ANION GAP 8 (5-19); BLOOD UREA NITROGEN 17 mg/dL (7-20); CALCIUM 9.5 mg/dL (8.4-10.2); CARBON DIOXIDE 25 mmol/L (22-30); CHLORIDE 106 mmol/L (98-107); GLUCOSE 154 mg/dL (75-110); IRON(TIBC) 38.2 ug/dL (37-170); POTASSIUM 4.7 mmol/L (3.6-5.0); SODIUM 138.6 mmol/L (137-145)
[2018-10-06 13:28] LABS: FERRITIN 7.75 ng/mL (11.1-264.0)
== END ==
LOC: OD 11:30
PROVIDERS: ATTEND Physician Assistant Medical
DX: E11.22 Type 2 diabetes mellitus with diabetic chronic kidney disease (principal); I12.9 Hypertensive chronic kidney disease with stage 1 through stage 4 chronic kidney disease, or unspecified chronic kidney disease; N18.3 Chronic kidney disease, stage 3 (moderate); D64.9 Anemia, unspecified
CPT/HCPCS: 36415; 80048; 81001; 82728; 83540; 83550; 85027

== ENCOUNTER 2018-10-18 14:00 | Outpatient (CLI) | payer MEDICARE, OTHER ==
[~2018-10-18 14:00] MED LIST changes: +FERRIC CARBOXYMALTOSE 750 MG in NORMAL SALINE 250 ML IV PRN; -FERUMOXYTOL (NON-ESRD) 510 MG/NS 100 ML IV PRN
[2018-10-18 14:21] VITALS: BP 133/65
== END 2018-10-18 15:49 | disposition home or self-care (01) ==
LOC: II 14:00 → 5TH 14:02 → II 15:49
PROVIDERS: ATTEND Internal Medicine Nephrology
PROC: 3E033GC Introduction of Other Therapeutic Substance into Peripheral Vein, Percutaneous Approach (ICD-10-PCS; principal; 2018-10-18)
DX: D50.9 Iron deficiency anemia, unspecified (principal); N18.3 Chronic kidney disease, stage 3 (moderate)
CPT/HCPCS: 96365; J7050; J1439

== ENCOUNTER 2018-10-25 13:43 | Outpatient (CLI) | payer MEDICARE, OTHER ==
[2018-10-25 14:11] VITALS: BP 160/79
== END 2018-10-25 15:24 | disposition home or self-care (01) ==
LOC: II 13:43 → 5TH 14:23 → II 15:24
PROVIDERS: ATTEND Internal Medicine Nephrology
PROC: 3E043GC Introduction of Other Therapeutic Substance into Central Vein, Percutaneous Approach (ICD-10-PCS; principal; 2018-10-25)
DX: D50.9 Iron deficiency anemia, unspecified (principal); N18.3 Chronic kidney disease, stage 3 (moderate)
CPT/HCPCS: 96365; J7050; J1439

== ENCOUNTER → 2019-04-05 | Outpatient (CLI) | payer MEDICARE, OTHER ==
[2019-04-05 10:28] LABS: HEMOGLOBIN 13.1 g/dL (12.0-15.5); MEAN CORPUSCULAR HEMOGLOBIN 30.9 pg (27.0-33.4); MEAN CORPUSCULAR HGB CONC 34.6 g/dL (32.0-36.0); MEAN CORPUSCULAR VOLUME 89 fl (80-97); PLATELET COUNT 195 10^3/uL (150-450); RED BLOOD COUNT 4.26 10^6/uL (3.72-5.28); RED CELL DISTRIBUTION WIDTH 12.3 % (11.5-14.0); WHITE BLOOD COUNT 5.6 10^3/uL (4.0-10.5)
[2019-04-05 10:42] LABS: APPEARANCE,URINE SLIGHTLY-CLOUDY; BILIRUBIN,URINE NEGATIVE (NEGATIVE); COLOR,URINE YELLOW; GLUCOSE, URINE NEGATIVE (NEGATIVE); KETONES,URINE NEGATIVE (NEGATIVE); LEUKOCYTE ESTERASE,URINE TRACE (NEGATIVE); NITRITE,URINE NEGATIVE (NEGATIVE); PROTEIN,URINE >=500 mg/dL (NEGATIVE); URINE SPECIFIC GRAVITY 1.016; UROBILINOGEN,URINE NEGATIVE mg/dL (<2.0)
[2019-04-05 10:51] LABS: ADD MANUAL MICROSCOPIC YES
[2019-04-05 10:58] LABS: ANION GAP 10 (5-19); BLOOD UREA NITROGEN 17 mg/dL (7-20); CALCIUM 9.3 mg/dL (8.4-10.2); CARBON DIOXIDE 22 mmol/L (22-30); CHLORIDE 105 mmol/L (98-107); GLUCOSE 203 mg/dL (75-110); POTASSIUM 4.5 mmol/L (3.6-5.0); SODIUM 136.8 mmol/L (137-145)
[2019-04-05 11:00] LABS: BACTERIA,URINE 1+ /HPF
== END ==
LOC: OD 09:30
PROVIDERS: ATTEND Physician Assistant Medical
DX: I12.9 Hypertensive chronic kidney disease with stage 1 through stage 4 chronic kidney disease, or unspecified chronic kidney disease (principal); N18.3 Chronic kidney disease, stage 3 (moderate); D64.9 Anemia, unspecified; E11.22 Type 2 diabetes mellitus with diabetic chronic kidney disease; R80.9 Proteinuria, unspecified
CPT/HCPCS: 36415; 80048; 81001; 85027; 87086; 87088

== ENCOUNTER → 2019-10-06 | Outpatient (CLI) | payer MEDICARE, OTHER ==
[2019-10-06 17:10] LABS: ABSOLUTE BASOPHILS # (AUTO) 0.1 10^3/uL (0.0-0.2); ABSOLUTE EOSINOPHILS # (AUTO) 0.3 10^3/uL (0.0-0.6); ABSOLUTE LYMPHOCYTES (AUTO) 1.5 10^3/uL (0.5-4.7); ABSOLUTE MONOCYTES (AUTO) 0.4 10^3/uL (0.1-1.4); ABSOLUTE NEUT (AUTO) 3.9 10^3/uL (1.7-8.2); BASOPHILS % (AUTO) 0.9 % (0-2); EOSINOPHILS % (AUTO) 4.6 % (0-6); HEMATOCRIT 37.7 % (36.0-47.0); HEMOGLOBIN 13.1 g/dL (12.0-15.5); LYMPHOCYTES % (AUTO) 25.1 % (13-45); MEAN CORPUSCULAR HEMOGLOBIN 30.5 pg (27.0-33.4); MEAN CORPUSCULAR HGB CONC 34.7 g/dL (32.0-36.0); MEAN CORPUSCULAR VOLUME 88 fl (80-97); PLATELET COUNT 215 10^3/uL (150-450); RED BLOOD COUNT 4.28 10^6/uL (3.72-5.28); RED CELL DISTRIBUTION WIDTH 12.9 % (11.5-14.0); SEGMENTED NEUTROPHILS % (AUTO) 63.4 % (42-78); TOTAL CELLS COUNTED % (AUTO) 100 %; WHITE BLOOD COUNT 6.1 10^3/uL (4.0-10.5)
[2019-10-06 17:33] LABS: ANION GAP 8 (5-19); BLOOD UREA NITROGEN 21 mg/dL (7-20); CALCIUM 10.2 mg/dL (8.4-10.2); CARBON DIOXIDE 24 mmol/L (22-30); CHLORIDE 105 mmol/L (98-107); GLUCOSE 145 mg/dL (75-110); POTASSIUM 4.6 mmol/L (3.6-5.0)
[2019-10-07 11:36] LABS: APPEARANCE,URINE SLIGHTLY-CLOUDY; BILIRUBIN,URINE NEGATIVE (NEGATIVE); COLOR,URINE YELLOW; GLUCOSE, URINE NEGATIVE (NEGATIVE); KETONES,URINE NEGATIVE (NEGATIVE); LEUKOCYTE ESTERASE,URINE SMALL (NEGATIVE); NITRITE,URINE NEGATIVE (NEGATIVE); PROTEIN,URINE >=500 mg/dL (NEGATIVE); UROBILINOGEN,URINE NEGATIVE mg/dL (<2.0)
[2019-10-07 11:57] LABS: URINE CREATININE 72.8 mg/dL (15-278)
[2019-10-07 12:10] LABS: UR PRO/CREAT RATIO RESULT 4.6 mg/mg (0.0-0.2); URINE PROTEIN 335.3 mg/dL (<12)
== END ==
LOC: OD 15:53
PROVIDERS: ATTEND Physician Assistant Medical
DX: E11.22 Type 2 diabetes mellitus with diabetic chronic kidney disease (principal); I12.9 Hypertensive chronic kidney disease with stage 1 through stage 4 chronic kidney disease, or unspecified chronic kidney disease; N18.2 Chronic kidney disease, stage 2 (mild); D63.1 Anemia in chronic kidney disease
CPT/HCPCS: 36415; 80048; 81001; 82570; 84156; 85025

== ENCOUNTER → 2020-10-08 | Outpatient (CLI) | payer MEDICARE, OTHER ==
[2020-10-08 12:36] LABS: HEMOGLOBIN 13.4 g/dL (12.0-15.5); MEAN CORPUSCULAR HEMOGLOBIN 29.4 pg (27.0-33.4); MEAN CORPUSCULAR HGB CONC 34.2 g/dL (32.0-36.0); MEAN CORPUSCULAR VOLUME 86 fl (80-97); PLATELET COUNT 271 10^3/uL (150-450); RED BLOOD COUNT 4.54 10^6/uL (3.72-5.28); RED CELL DISTRIBUTION WIDTH 13.4 % (11.5-14.0); WHITE BLOOD COUNT 10.4 10^3/uL (4.0-10.5)
[2020-10-08 12:40] LABS: APPEARANCE,URINE CLEAR; BILIRUBIN,URINE NEGATIVE (NEGATIVE); COLOR,URINE YELLOW; GLUCOSE, URINE NEGATIVE (NEGATIVE); KETONES,URINE NEGATIVE (NEGATIVE); LEUKOCYTE ESTERASE,URINE NEGATIVE (NEGATIVE); NITRITE,URINE NEGATIVE (NEGATIVE); PROTEIN,URINE 100 mg/dL (NEGATIVE); URINE SPECIFIC GRAVITY 1.011; UROBILINOGEN,URINE NEGATIVE mg/dL (<2.0)
[2020-10-08 13:04] LABS: ANION GAP 8 (5-19); BLOOD UREA NITROGEN 19 mg/dL (7-20); CALCIUM 9.9 mg/dL (8.4-10.2); CARBON DIOXIDE 26 mmol/L (22-30); CHLORIDE 103 mmol/L (98-107); GLUCOSE 121 mg/dL (75-110); PHOSPHORUS 4.7 mg/dL (2.5-4.5)
[2020-10-08 13:05] LABS: POTASSIUM 4.9 mmol/L (3.6-5.0)
[2020-10-08 13:26] LABS: URINE CREATININE 79.3 mg/dL (15-278)
[2020-10-08 13:36] LABS: UR PRO/CREAT RATIO RESULT 3.1 mg/mg (0.0-0.2); URINE PROTEIN 244.8 mg/dL (<12)
[2020-10-08 13:44] LABS: ABSOLUTE MONOCYTES # (MANUAL) 0.6 10^3/uL (0.1-1.4); BASOPHILS % (MANUAL) 0 % (0-2); EOSINOPHILS % (MANUAL) 2 % (0-6); LYMPHOCYTES % (MANUAL) 24 % (13-45); METAMYELOCYTES % (MANUAL) 1 % (0-1); MONOCYTES % (MANUAL) 6 % (3-13); SEGMENTED NEUTROPHILS % (MAN) 62 % (42-78); TOTAL CELLS COUNTED 100
[2020-10-08 13:46] LABS: RBC MORPHOLOGY COMMENT NORMO-CYTIC/CHROMIC
[2020-10-08 13:47] LABS: PLATELET COMMENT ADEQUATE
== END ==
LOC: OD 10:49
PROVIDERS: ATTEND Internal Medicine Nephrology
DX: N18.30 Chronic kidney disease, stage 3 unspecified (principal); R80.1 Persistent proteinuria, unspecified; D50.8 Other iron deficiency anemias
CPT/HCPCS: 36415; 80069; 81001; 82570; 84156; 85025